=== PATIENT | female | born 1955 | race Caucasian/White ===

== ENCOUNTER 2017-06-11 09:38 | Emergency (ER) | payer OTHER, MEDICAID ==
[2017-06-11 09:57] VITALS: RESP 16; TEMP 97.9
--- NOTE | 2017-06-11 10:38 | EDPHY ---
H & P Time Seen by Provider: 06/11/17 10:16 HPI/ROS: CHIEF COMPLAINT: "I am having goiter" HISTORY OF PRESENT ILLNESS: Patient is a 62-year-old female with a history of hypothyroidism and Chad's disease who presents to the emergency department with concerns over her thyroid levels. The patient states that in May her physician switched her thyroid medication. Her levothyroxine was increased from 25 mcg daily to 75 mcg daily. She did not know she was to stop her liothyronine and continued to take 5 mcg/daily. The patient states she is concerned that she has been taking too much of her medication. She is concerned that she may be developing goiter. She feels heaviness and the base of her throat. She has no shortness of breath or respiratory distress. She is tolerating secretions well. She has no difficulty swallowing. Patient states she has been losing hair. No recent weight loss. Her skin is unchanged. She has an appointment and week to see her primary care physician to prescribe her medications, Dr. Salazar. No chest pain. REVIEW OF SYSTEMS: My complete review of systems is negative except as mentioned in the HPI. Past Medical/Surgical History: Includes hypothyroidism, Chad's, cancer of the cranium Past surgical history: Includes hysterectomy, appendectomy, tumor removal Social history: Patient does not smoke Smoking Status: Former smoker Physical Exam: 36.6, 143/95, 70, 16, 95% on room air GENERAL: Well-appearing, in no acute distress, alert. HEENT: Eyes normal to inspection, normal pharynx, no signs of dehydration. Patient's airway is clear with no signs of obstruction or swelling. Normal appearing here. NECK: No thyromegaly, no lymphadenopathy, supple. No palpable mass. No stridor. RESPIRATORY: Clear to auscultation bilaterally, no rales, rhonchi or wheezing. CVS: Regular rate and rhythm, no rubs, murmurs, or gallops. ABDOMEN: Soft, nontender, nondistended, no organomegaly. BACK: Normal to inspection, no CVA tenderness. SKIN: Normal color, no rash, warm, dry. No pallor. Her skin feels normal the touch. It is not thin. EXTREMITIES: No pedal edema, no calf tenderness, no Homans sign or cords, no joint swelling. NEURO/PSYCH: Alert and oriented x3, normal mood and affect, normal motor sensory exam. No obvious cranial nerve deficit. Constitutional: Initial Vital Signs Temperature (C) 36.6 C 06/11/17 09:46 Heart Rate 70 06/11/17 09:46 Respiratory Rate 16 06/11/17 09:46 Blood Pressure 143/95 H 06/11/17 09:46 O2 Sat (%) 95 06/11/17 09:46 O2 Delivery Mode Room Air Allergies/Adverse Reactions: iodine [Iodine] Allergy (Intermediate, Verified 06/11/17 09:53) Anaphylaxis Home Medications: Medication Instructions Recorded LEVOTHYROXINE 01/04/10 Hydrocodone Bit/Homatropine 1 tsp PO Q4-6PRN PRN #6 oz 11/06/10 [Hycodan] Liothyronine Sodium 06/11/17 Medical Decision Making ED Course/Re-evaluation: In the emergency department I discussed possible etiologies with the patient. I answered all her questions. At this time I do not feel she has acute respiratory distress. Not feel she needs imaging of her thyroid emergently. Laboratory studies were ordered including a TSH. EKG shows normal sinus rhythm, normal rate, normal axis, normal intervals. There are no ST or T-wave abnormalities. EKG is normal as interpreted by me. CBC shows mildly elevated hematocrit of 47. Patient's chemistry panel is notable for an anion gap of 18. TSH is pending. I discussed the results thus far with the patient TSH: 0.67 I discussed the results with the patient. I answered all her questions. She was given warnings prior to leaving. She will return for symptoms. Differential Diagnosis: My differential includes but is not limited to hyperthyroidism, hypothyroidism, thyroid storm, myxedema coma, electrolyte abnormality, sugar abnormality, pharyngitis, mass, malignancy, abscess - Data Points Laboratory Results: Laboratory Results 06/11/17 10:50 06/11/17 10:50 06/11/17 06/11/17 06/11/17 Unknown 10:50 10:50 WBC 4.61 10^3/uL 10^3/uL (3.80-9.50) RBC 5.33 10^6/uL 10^6/uL (4.18-5.33) Hgb 16.1 g/dL g/dL (12.6-16.3) Hct 47.4 % H % (38.0-47.0) MCV 88.9 fL fL (81.5-99.8) MCH 30.2 pg pg (27.9-34.1) MCHC 34.0 g/dL g/dL (32.4-36.7) RDW 12.7 % % (11.5-15.2) Plt Count 213 10^3/uL 10^3/uL (150-400) MPV 9.7 fL fL (8.7-11.7) Neut % (Auto) 43.6 % % (39.3-74.2) Lymph % (Auto) 45.1 % H % (15.0-45.0) [place] % (Auto) 7.6 % % (4.5-13.0) Eos % (Auto) 2.6 % % (0.6-7.6) Baso % (Auto) 0.9 % % (0.3-1.7) Nucleat RBC Rel Count 0.0 % % (0.0-0.2) Absolute Neuts (auto) 2.01 10^3/uL 10^3/uL (1.70-6.50) Absolute Lymphs (auto) 2.08 10^3/uL 10^3/uL (1.00-3.00) Absolute Monos (auto) 0.35 10^3/uL 10^3/uL (0.30-0.80) Absolute Eos (auto) 0.12 10^3/uL 10^3/uL (0.03-0.40) Absolute Basos (auto) 0.04 10^3/uL 10^3/uL (0.02-0.10) Absolute Nucleated RBC 0.00 10^3/uL 10^3/uL (0-0.01) Immature Gran % 0.2 % % (0.0-1.1) Immature Gran # 0.01 10^3/uL 10^3/uL (0.00-0.10) Sodium 144 mEq/L mEq/L (135-145) Potassium 4.1 mEq/L mEq/L (3.5-5.2) Chloride 101 mEq/L mEq/L (97-110) Carbon Dioxide 25 mEq/l mEq/l (22-31) Anion Gap 18 mEq/L H mEq/L (8-16) BUN 9 mg/dL mg/dL (7-23) Creatinine 0.6 mg/dL mg/dL (0.6-1.0) Estimated GFR > 60 Glucose 97 mg/dL mg/dL (70-100) Calcium 10.5 mg/dL H mg/dL (8.5-10.4) TSH 0.627 uIU/mL uIU/mL (0.465-4.680) Group A Strep Screen Group A Strep DNA Pending 06/11/17 10:05 WBC RBC Hgb Hct MCV MCH MCHC RDW Plt Count MPV Neut % (Auto) Lymph % (Auto) [place] % (Auto) Eos % (Auto) Baso % (Auto) Nucleat RBC Rel Count Absolute Neuts (auto) Absolute Lymphs (auto) Absolute Monos (auto) Absolute Eos (auto) Absolute Basos (auto) Absolute Nucleated RBC Immature Gran % Immature Gran # Sodium Potassium Chloride Carbon Dioxide Anion Gap BUN Creatinine Estimated GFR Glucose Calcium TSH Group A Strep Screen NEGATIVE (NEGATIVE) Group A Strep DNA Departure - Departure Disposition: Home, Routine, Self-Care Clinical Impression: Thyroid disease Condition: Good Instructions: Hyperthyroidism (ED) Referrals: Harris BARROW MD [Other] - 2-3 days, call for appt.
[2017-06-11 10:57] LABS: PLATELET COUNT 213 10^3/uL (150-400)
--- NOTE | 2017-06-11 11:14 | CPEKG ---
Heart Rate: 58 RR Interval: 1034 P-R Interval: 172 QRSD Interval: 92 QT Interval: 448 QTC Interval: 441 P [place]: -8 QRS [place]: 79 T Wave [place]: 57 EKG Severity - NORMAL ECG - EKG Impression: SINUS RHYTHM Electronically Signed By: Divya Huntley 11-Jun-2017 14:48:54
[2017-06-11 12:22] VITALS: BP 132/77; PULSE 64; O2SAT 97
== END 2017-06-11 12:27 | disposition home or self-care (01) ==
LOC: CED 09:38
DX: E07.9 Disorder of thyroid, unspecified (principal); Z85.841 Personal history of malignant neoplasm of brain; Z87.891 Personal history of nicotine dependence
CPT/HCPCS: 80048-PO; 84443-PO; 85025-PO; 87880-PO